=== PATIENT | male | born 1985 | race Caucasian/White ===

== ENCOUNTER 2017-12-29 16:26 | Emergency (ER) | payer SELFPAY ==
[~2017-12-29] VITALS: Ht 170.2 cm; Wt 68.2 kg
[2017-12-29 17:36] VITALS: BP 122/67
== END 2017-12-29 17:40 | disposition home or self-care (01) ==
LOC: EDBD 16:31 → EMS 16:31
DX: M79.605 Pain in left leg (principal); Z89.512 Acquired absence of left leg below knee
CPT/HCPCS: 82962; 99283